=== PATIENT | male | born 1935 | race Caucasian/White ===

== ENCOUNTER → 2017-01-13 | Outpatient (CLI) | payer MEDICARE, BC ==
[~2017-01-13] MED LIST: ASPIRIN325 MG PO; CALCIUM 500 MG1 EACH PO; DAILY VALUE1 EACH PO; FIBER THERAPY0.52 GM PO; FISH OIL500 MG PO; LOSARTAN POTASS50 MG PO; NEXIUM40 MG PO; PERCOCET 5/31 TABLET PO; TOPROL XL100 MG PO; VALIUM5 MG PO; ZANTAC150 MG PO
== END | disposition home or self-care (01) ==
LOC: CDC 11:08
DX: Z01.810 Encounter for preprocedural cardiovascular examination (principal); R00.1 Bradycardia, unspecified; R94.31 Abnormal electrocardiogram [ECG] [EKG]
CPT/HCPCS: 93000